=== PATIENT | female | born 2000 | race Caucasian/White ===

== ENCOUNTER 2019-02-07 18:42 | Emergency (ER) | payer SELFPAY ==
[2019-02-07 19:04] LABS: Bacteria/HPF None Seen HPF (None Seen); Bilirubin Negative (Negative); Blood, Urine Negative (Negative); Clarity Clear (Clear); Glucose, Urine (Dipstick) Normal (Negative); Leukocyte 25 Leu/uL (Negative); Nitrite Negative (Negative); Protein, Urine (Dipstick) Negative (Neg-Trace); RBC/HPF 0-3 HPF (0-3); Squamous Epithelial 0-3 HPF (0-3); Urobilinogen Normal mg/dL (Less than 2); WBC/HPF 0-3 HPF (0-3)
[2019-02-07 19:10] LABS: #Basophils 0.1 thou/uL (0.0-0.2); #Eosinphils 0.1 thou/uL (0.0-0.7); #Lymphocytes 2.8 thou/uL (1.20-3.40); #Monocytes 0.8 thou/uL (0.11-0.59); %Basophils 0.4 % (0.0-1.0); %Lymphocytes 23.5 % (28.0-48.0); %Monocytes 6.9 % (0.0-4.0); %Neutrophils 68.2 % (31.0-61.0); Hemoglobin 12.8 g/dL (12.0-16.0); Mean Corpuscular HGB CONC 35.1 g/dL (32.0-36.0); Mean Corpuscular Hemoglobin 30.3 pg (25.0-35.0); Mean Corpuscular Volume 86.3 fL (78.0-98.0); Mean Platelet Volume 7.2 fL (7.4-10.4); Platelet Count 388 thou/uL (130-400); RBC Distribution Width 12.4 % (11.5-14.5); Red Blood Cell (RBC) Count 4.23 mill/uL (4.00-5.20); White Blood Cell (WBC) Count 11.7 thou/uL (4.8-10.8)
[2019-02-07 19:41] LABS: ALT (SGPT) 17 U/L (8-55); AST (SGOT) 16 U/L (5-34); Alkaline Phosphatase 64 U/L (40-100); Anion Gap 11 mmol/L (10-20); BUN (Urea Nitrogen) 6 mg/dL (7.0-18.7); Bilirubin, Total 0.2 mg/dL (0.2-1.2); Calc. Creatinine Clearance 0 mL/min (70-130); Calcium 9.5 mg/dL (7.8-10.44); Carbon Dioxide 22 mmol/L (22-29); Chloride 105 mmol/L (98-107); Estimated GFR-MDRD Greater than 90; Globulin 3.2 g/dL (2.4-3.5); Glucose 85 mg/dL (70-105); Potassium 3.6 mmol/L (3.5-5.1); Protein, Total 7.2 g/dL (6.0-8.3); Sodium 134 mmol/L (136-145)
== END 2019-02-07 20:35 | disposition home or self-care (01) ==
LOC: ERS 18:42
DX: O99.89 Other specified diseases and conditions complicating pregnancy, childbirth and the puerperium (principal); R10.30 Lower abdominal pain, unspecified; Z3A.09 9 weeks gestation of pregnancy
CPT/HCPCS: 36415; 80053; 81003; 81015; 84702; 85025; 99284

== ENCOUNTER 2019-07-05 16:11 | Day surgery (SDC) | payer OTHER ==
[2019-07-05 16:46] VITALS: BMI 27.4
[2019-07-05 16:51] VITALS: BP 127/72; TEMP 99.5
[2019-07-05] MEDS ORDERED: hydrALAZINE 20 MG/ML VIAL SLOW IVP PRN (17:04)
--- NOTE | 2019-07-05 17:07 | PDOC.LDHP ---
Labor and Delivery H&P Chief complaint: other (spotting when wiping) HPI: 18 yo G1 at 30 weeks, sees Dr Vargas, here for spotting after wiping. No LOF, no VB, no clots, no CTX. Slight LLQ pain with standing and walking. No fevers. No recent trauma, no recent sex Review of Systems: completed and pertinents are as per HPI Current gestational age (weeks): 30 Dating criteria: last menstrual period Grav: 1 Current complications: none Abnormal US findings: No Current medications: pre-porfirio vitamins Previous surgical history: none Allergies/Adverse Reactions: Allergies Allergy/AdvReac Type Severity Reaction Status Date / Time No Known Allergies Allergy Unverified 07/05/19 16:42 Social history: none - Physical Exam Vital signs reviewed and normal: yes (127/72 Temp of 99.5) General: NAD Heart: RRR Abdomen: gravid FHT: category 1 (reactive NST) - Assessment Spotting at 30 weeks, no recent coitus. No trauma. No raisa VB. - Plan Plan: observation in L&D, other (I have ordered a TVUS for CX length and cath UA. Clinically stable. Suspect discomforts of at this time.)
[2019-07-05 17:23] LABS: Bacteria/HPF None Seen HPF (None Seen); Bilirubin Negative (Negative); Blood, Urine Negative (Negative); Clarity Turbid (Clear); Glucose, Urine (Dipstick) Normal (Negative); Leukocyte Negative Leu/uL (Negative); Nitrite Negative (Negative); Protein, Urine (Dipstick) Negative (Neg-Trace); RBC/HPF 0-3 HPF (0-3); Renal Epithelial 0-3 HPF (None Seen); Squamous Epithelial 0-3 HPF (0-3); Urobilinogen Normal mg/dL (Less than 2); WBC/HPF 0-3 HPF (0-3)
[2019-07-05 17:25] LABS: Urine Culture Reflex No No
--- NOTE | 2019-07-05 17:39 | PDOC.EVN ---
Event Note - Event Note Event Note: CX length sono OK at 2.6cm...no gross VB notd. OK for DC home but I will give 1 liter LR to make her feel better
--- NOTE | 2019-07-05 17:40 | PDOC.EVN ---
Event Note - Event Note Event Note: MADALYN ok
[2019-07-05] MEDS ORDERED: Lactated Ringer's 1,000 ML IV SCH (17:45)
--- NOTE | 2019-07-05 17:54 | ULT ---
LIMITED OB/PELVIC ULTRASOUND: 07/05/19 COMPARISON: None. HISTORY: Evaluate cervical length in a female. TECHNIQUE: Multiplanar gibbons scale and color Doppler images were obtained in a transabdominal and transvaginal pe lvic ultrasound. There is a single live intrauterine with heart rate of 153 beats per minute. The cervix is 2.8 cm in length with a small amount of fluid within the cervical canal. IMPRESSION: Slight shortening of the cervix as above. POS: EAA
== END 2019-07-05 19:00 | disposition home or self-care (01) ==
LOC: L&D/OP 16:11
PROVIDERS: ATTEND Student in an Organized Health Care Education/Training Program
DX: O26.853 Spotting complicating pregnancy, third trimester (principal); O26.873 Cervical shortening, third trimester; Z3A.30 30 weeks gestation of pregnancy
CPT/HCPCS: 51701; 76856; 81001; 96360; 99282

== ENCOUNTER 2019-08-13 15:13 | Day surgery (SDC) | payer OTHER ==
[2019-08-13 16:10] VITALS: BMI 30.2
[2019-08-13] MEDS ORDERED: hydrALAZINE 20 MG/ML VIAL SLOW IVP PRN (16:24)
[2019-08-13 17:07] LABS: Bacteria/HPF 4+ HPF (None Seen); Bilirubin Negative (Negative); Blood, Urine Trace (Negative); Clarity Turbid (Clear); Glucose, Urine (Dipstick) Normal (Negative); Leukocyte 500 Leu/uL (Negative); Nitrite Negative (Negative); Protein, Urine (Dipstick) 20 mg/dL (Neg-Trace); Urobilinogen Normal mg/dL (Less than 2); WBC/HPF Greater than 50 HPF (0-3)
[2019-08-13 18:13] LABS: Bacteria/HPF 3+ HPF (None Seen); Bilirubin Negative (Negative); Blood, Urine Negative (Negative); Clarity Clear (Clear); Glucose, Urine (Dipstick) Normal (Negative); Leukocyte 75 Leu/uL (Negative); Nitrite Negative (Negative); Protein, Urine (Dipstick) Negative (Neg-Trace); RBC/HPF 0-3 HPF (0-3); Squamous Epithelial 0-3 HPF (0-3); Urobilinogen Normal mg/dL (Less than 2)
--- NOTE | 2019-08-13 18:29 | PRG ---
DATE OF SERVICE: PRIMARY OB: Dr. Delia Vargas. CHIEF COMPLAINT: Pelvic pain. HISTORY OF PRESENT ILLNESS: Patient is a 18-year-old G1, P0 female with an intrauterine at 35 weeks and 5 days, presenting to Labor and Delivery for pelvic pain which she began feeling last night when she was getting up to go to the bathroom. She reports that the pain was sharp and was present as she was trying to get out and back into bed and just has not gotten better. She reports it gets worse with activity and movement, such as getting out of bed, rolling over in bed, walking. She also reports that she does feel her abdomen gets hard at times. She denies vaginal bleeding or leakage of fluid. She reports earlier in the day today she felt like she wanted to pass out, had some dizziness, but was not somewhat so that she could not drive herself here to the hospital at the recommendation of her mother. Again upon pressing her about the symptoms, she was feeling she reports she felt a little bit dizzy, but not so much to impede normal activities. Patient denies fever, cough, headache, chest pain, shortness of breath, nausea, vomiting , diarrhea, constipation, hip problems, knee problems, muscle weakness, vaginal bleeding, leakage of fluid, urinary urgency or frequency. PAST MEDICAL HISTORY: A1 gestational diabetes with this . PAST SURGICAL HISTORY: Negative. ALLERGIES: NO KNOWN DRUG ALLERGIES. MEDICATIONS: Iron pills and vitamins. SOCIAL HISTORY: Denies drug, alcohol, or tobacco use. OB LABS: Blood type is B positive. Antibody screen is negative. Hepatitis B surface antigen is negative. She was positive for chlamydia in February. Repeat exam was negative after treatment. HIV is nonreactive. She is rubella immune. Diabetic screen was 160. In May of this year, she was positive for gonorrhea with repeat testing negative and on July 22, she was GBS negative. REVIEW OF SYSTEMS: Per HPI. PHYSICAL EXAMINATION: VITAL SIGNS: Blood pressure 118/82, heart rate of 104, temperature 98.4, and respiratory rate of 18. GENERAL: She appears to be in no acute distress. She is alert, oriented, cooperative, pleasant to interact with. HEAD: Normocephalic and atraumatic. LUNGS: Clear to auscultation bilaterally. HEART: Has regular rate and rhythm. ABDOMEN: Gravid, soft, and nontender. EXTREMITIES: Nontender and nonedematous. CERVICAL EXAM: Closed, thick and high. LABORATORY DATA: heart tracing shows the fetus with a baseline in the 150s with moderate long-term variability, positive 15 x 15 accelerations, no decelerations. Contractions, she does show some irritability, but does not feel them. Urinalysis, initial results showed 500 leukocyte esterase, 4 to 6 red blood cells, greater than 50 white blood cells, 7 to 10 squamous cells. Urine bacteria 4+. ASSESSMENT AND PLAN: Patient is a 18-year-old G1, P0 female with an intrauterine at 35 weeks and 5 days with A1 gestational diabetes. Pelvic pain is most consistent with musculoskeletal pain with . The urinalysis that we collected appears to be contaminated, so interpretation is impossible. I did go back and discussed this with the patient After reviewing the proper steps and giving a good clean-catch specimen,patient has agreed to recollect the specimen. Patient will be then discharged home as she has no evidence of labor or other concerning features at this time. Fetus has a category 1 tracing and reactive NST. Patient has been counseled to follow up with her primary OB as scheduled. She will be contacting Labor and Delivery in the next couple hours for results. Should she have evidence of urinary tract infection, we will prescribe Keflex. Repeat ua with 3+bacteria, no squamous cells, 75 LE. will send keflex 500mg tid x5days and will culture urine. Pt has been notified Job ID: [id number] [facility]
== END 2019-08-13 18:06 | disposition home health service (06) ==
LOC: L&D/OP 15:13 → EEVIPCON 15:13 → L&D/OP 18:06
PROVIDERS: ATTEND Student in an Organized Health Care Education/Training Program
DX: O99.89 Other specified diseases and conditions complicating pregnancy, childbirth and the puerperium (principal); R10.2 Pelvic and perineal pain; O24.410 Gestational diabetes mellitus in pregnancy, diet controlled; Z3A.35 35 weeks gestation of pregnancy; Z79.899 Other long term (current) drug therapy
CPT/HCPCS: 81001; 99284

== ENCOUNTER 2019-08-30 22:56 | Day surgery (SDC) | payer OTHER ==
[2019-08-30 23:31] VITALS: BP 148/90; TEMP 98.6; BMI 30.7
[2019-08-31] MEDS ORDERED: hydrALAZINE 20 MG/ML VIAL SLOW IVP PRN (00:34)
--- NOTE | 2019-08-31 00:34 | PDOC.LDHP ---
Labor and Delivery H&P Chief complaint: contractions HPI: Pt is a 18 yo at 38.2, BETZY 09/12/19, who presents for contractions starting at 1999. She states she has felt abdominal pressure/contractions 3-4 times since they started. They lasted 3 mins each. She denies substantial LOF, vaginal bleeding, ARREDONDO, LE edema, chest pain, vision changes, shortness of breath , and RUQ pain, dysuria, hematuria, increased urinary frequency. She did endorse one episode of small amount of fluid on undergarments. She also endorsed discharge. She was treated for gonorrhea and chlamydia through this . OB Provider: Dr. Vargas Due date: 09/12/19 Current complications: gestational diabetes Past Medical History: denies Current medications: pre-porfirio vitamins, iron Allergies/Adverse Reactions: Allergies Allergy/AdvReac Type Severity Reaction Status Date / Time No Known Allergies Allergy Verified 08/30/19 23:25 Social history: none - Physical Exam Vital signs reviewed and normal: yes Abnormal vital signs: 148/90, pulse 105 General: NAD, resting Heart: RRR Lungs: nonlabored breathing Abdomen: NTTP Extremeties: no edema - Vaginal Exam Effacement: 0% Station: -3 - OB Labs Blood type: B RH: positive Antibody Screen: negative HIV: negative RPR: unknown HEPSAg: negative GBS: negative Rubella: immune Additional Labs: Pap normal on 03/13/19 - Plan Plan: observation in L&D -: Pt is a 18 yo at 38.2 wks who presents for contractions: # IUP, Term # Contractions Initial check was closed/thick/high. Will recheck in 4 hours # Elevated BP's Denies hx of elevated BP's. She does not have pre-e symptoms. Will continue to monitor but pressures are WNL at this time. She did state she was nervous on admission. - will draw CBC, CMP - monitor for 4 hours # A1GDM - monitor; fasting run around 95 and 2 hr pp are < 120 # GBS Negative Dispo: monitor on L&D for progression of labor
--- NOTE | 2019-08-31 01:30 | PDOC.BPN ---
- Brief Progress Note OBGYN Attending At bedside with the patient now Please see full H&P from Dr Drew 18 yo G1 at 38 weeks with possible CTX, cervix closed Initial BPs were 140s/90s. We will check PIH labs and check BPs over 4 hrs Plan D/W patient. Patient was nervous on arrival, now better.
[2019-08-31 01:39] LABS: #Basophils 0.1 thou/uL (0.0-0.2); #Eosinphils 0.1 thou/uL (0.0-0.7); #Lymphocytes 1.4 thou/uL (1.20-3.40); #Monocytes 0.4 thou/uL (0.11-0.59); %Basophils 0.6 % (0.0-1.0); %Eosinophils 1.3 % (0.0-10.0); %Lymphocytes 15.5 % (28.0-48.0); %Monocytes 4.9 % (0.0-4.0); %Neutrophils 77.7 % (31.0-61.0); Hemoglobin 12.3 g/dL (12.0-16.0); Mean Corpuscular Hemoglobin 30.5 pg (25.0-35.0); Mean Corpuscular Volume 87.2 fL (78.0-98.0); Mean Platelet Volume 8.3 fL (7.4-10.4); Platelet Count 243 thou/uL (130-400); RBC Distribution Width 12.6 % (11.5-14.5); Red Blood Cell (RBC) Count 4.05 mill/uL (4.00-5.20)
[2019-08-31 02:01] LABS: ALT (SGPT) 17 U/L (8-55); AST (SGOT) 17 U/L (5-34); Albumin 3.5 g/dL (3.5-5.0); Alkaline Phosphatase 154 U/L (40-100); Anion Gap 15 mmol/L (10-20); BUN (Urea Nitrogen) Less than 4 mg/dL (7.0-18.7); Bilirubin, Total 0.2 mg/dL (0.2-1.2); Calc. Creatinine Clearance 230 mL/min (70-130); Calcium 9.6 mg/dL (7.8-10.44); Carbon Dioxide 18 mmol/L (22-29); Chloride 105 mmol/L (98-107); Estimated GFR-MDRD Greater than 90; Globulin 3.2 g/dL (2.4-3.5); Glucose 84 mg/dL (70-105); Potassium 3.6 mmol/L (3.5-5.1); Protein, Total 6.7 g/dL (6.0-8.3); Sodium 134 mmol/L (136-145)
--- NOTE | 2019-08-31 02:50 | PDOC.BPN ---
- Brief Progress Note BP checks: normal Labs normal
--- NOTE | 2019-08-31 02:53 | PDOC.BPN ---
- Brief Progress Note OK for DC home if recheck is same. I do not suspect labor at this time. BPs normal, was very nervous when first arrived so may have been artificial rise. Recheck BP Sunday
[2019-08-31] MEDS ORDERED: Promethazine 25 MG TAB PO SCH (03:40)
[2019-08-31] MEDS ORDERED: Promethazine HCl 25 MG/ML VIAL IM SCH (04:00)
== END 2019-08-31 04:00 | disposition home or self-care (01) ==
LOC: L&D/OP 22:56
PROVIDERS: ATTEND Student in an Organized Health Care Education/Training Program
DX: O47.1 False labor at or after 37 completed weeks of gestation (principal); O24.410 Gestational diabetes mellitus in pregnancy, diet controlled; O16.3 Unspecified maternal hypertension, third trimester; Z3A.38 38 weeks gestation of pregnancy
CPT/HCPCS: 36415; 80053; 85025

== ENCOUNTER 2019-09-08 16:00 | Day surgery (SDC) | payer OTHER ==
[2019-09-08 16:58] VITALS: BMI 30.7
[2019-09-08 17:35] LABS: Amnisure Internal Control QC ACCEPTABLE (ACCEPTABLE); Amnisure Test No Membranes Rupture (No Rupture)
[2019-09-08] MEDS ORDERED: hydrALAZINE 20 MG/ML VIAL SLOW IVP PRN (17:48)
--- NOTE | 2019-09-08 17:49 | PDOC.BPN ---
- Brief Progress Note At Bedside. Please see full H&P. NST reactive
--- NOTE | 2019-09-08 18:16 | HP ---
TIME OF EVALUATION: 1744. CHIEF COMPLAINT: Possible leakage of fluid at 39 weeks and contractions. HISTORY OF PRESENT ILLNESS: This is a patient of Dr. Godinez, who is a 18-year-old G1, P0, with an EDC of September 11 giving her EGA of 39 weeks and 3 days. She states that she had a possible gush of fluid at around 1400 and has had some continual leakage. She has had contractions that she rates about every 5 minutes and are graded at 7/10 in pain scale. She denies fevers and has good movement. She denies any other complications, although she does state that she had a history of gonorrhea and chlamydia in this (RN contributed information). REVIEW OF SYSTEMS: Complete review of systems was checked and is otherwise negative unless specified in the HPI. In specific, there is no COVID symptoms, there is no trauma, and there is no evidence of PIH symptoms (visual changes, right upper quadrant, or midepigastric pain). PAST MEDICAL HISTORY: She has gestational diabetes this and is diet-controlled (A1 diabetes). MEDICATIONS: Iron. PAST SURGICAL HISTORY: None. ALLERGIES: NONE. PHYSICAL EXAMINATION: VITAL SIGNS: Her blood pressure is 129/81, pulse is in the 80s, temperature is afebrile, and respirations are 16 and unlabored. GENERAL: She is in no acute distress, but is having some contraction discomfort. ABDOMEN: Grossly gravid and size compatible with dates. PELVIC: Currently pending as we were getting ready to do the sterile speculum evaluation. LABORATORY DATA: Reveals an AmniSure that is negative. On monitors, the heart tones are in the 130s to 140s with moderate variability and accelerations (reactive nonstress test). Tocodynamometer shows contractions about every 5 minutes. ASSESSMENT: This is a 18-year-old G1, P0, at full term, who is here for possible ruptured membranes. AmniSure negative. PLAN: 1. Sterile spec exam discussed with the patient and she is getting ready for her sterile spec exam. 2. Threatened labor. 3. If there is no evidence of ruptured membranes, and her cervix is not in the active phase, we will likely discharge home with expectant management. Follow up within 24 to 48 hours. Job ID: [id number]
--- NOTE | 2019-09-10 08:16 | PRG ---
DATE OF SERVICE: 09/08/2019 TIME SEEN: 1806 hours. STERILE SPECULUM EXAM: In brief, I discussed with the patient sterile speculum examination and I did review with her the negative AmniSure. I performed a sterile speculum examination with the assistance of Emely Hankins ([id number]), with Debby in the room. Sterile spec did not find any evidence of pooling or leakage of fluid to the os with Valsalva and cough. The assessment by the sterile spec exam is that she was not ruptured. Sterile spec was removed and then I performed a digital cervical exam. Cervical exam by me was 3 cm dilated, about 80% to 90% effaced, and 0 station. ASSESSMENT AND PLAN: I have discussed with the patient that a negative AmniSure and negative sterile spec effectively rules out rupture of membrane at this time. I did explain to her that it is possible that the patient would go home and enter spontaneous labor and/or have a rupture of membranes upon arrival at home or later on today. I did instruct her that she is to return to Labor and Delivery should that occur. I also instructed her that I recommended her to contact the office tomorrow, so that she could follow up with Dr. Vargas (I believe I wrote Dr. Godinez in my previous note) within 24-48 hours. Job ID: [id number] MTDD
== END 2019-09-08 18:48 | disposition home or self-care (01) ==
LOC: L&D/OP 16:00
PROVIDERS: ATTEND Student in an Organized Health Care Education/Training Program
DX: O47.1 False labor at or after 37 completed weeks of gestation (principal); O24.410 Gestational diabetes mellitus in pregnancy, diet controlled; Z3A.39 39 weeks gestation of pregnancy
CPT/HCPCS: 84112; 99283

== ENCOUNTER 2019-09-09 16:37 | Day surgery (SDC) | payer OTHER ==
[2019-09-09 17:07] VITALS: BP 117/74; TEMP 99.3; BMI 30.7
--- NOTE | 2019-09-09 19:28 | PRG ---
DATE OF SERVICE: 09/09/2019 PRIMARY OB: Delia Vargas MD CHIEF COMPLAINT: Abdominal pain. HISTORY OF PRESENT ILLNESS: The patient is a 18-year-old G1, P0 female with an intrauterine at 39 weeks and 4 days, presenting to Labor and Delivery with complaints of abdominal pains. The patient is re-presenting from yesterday evening where she was 3, 90, and -1 station. She reports that her contractions become more frequent and more intense. She reports some bloody show, but denies any leakage of fluid. She denies fever, headache, cough, chest pain, shortness of breath, nausea, vomiting, diarrhea, constipation, hip problems, knee problems, or muscle weakness. She denies urinary urgency or frequency. PAST MEDICAL HISTORY: A1 gestational diabetes. PAST SURGICAL HISTORY: Negative. ALLERGIES: NO KNOWN DRUG ALLERGIES. MEDICATIONS: vitamins and iron. SOCIAL HISTORY: Denies drug, alcohol, or tobacco use. OB LABS: Blood type is B positive. Antibody screen is negative. Hepatitis B surface antigen is negative. HIV is nonreactive. Chlamydia was positive on initial visit with a negative [id number]. She is rubella immune. Gonorrhea was positive in her third trimester with a negative [id number]. She is GBS negative. VDRL is nonreactive in the third trimester. REVIEW OF SYSTEMS: Per HPI. PHYSICAL EXAMINATION: VITAL SIGNS: Blood pressure is 117/74, heart rate of 112, respiratory rate of 18, temperature 99.3. GENERAL: She appears to be in no acute distress. She is alert, oriented, cooperative, and pleasant to interact with. HEAD: Normocephalic, atraumatic. LUNGS: Clear to auscultation bilaterally. HEART: Has a regular rate and rhythm. ABDOMEN: Gravid, soft, nontender. EXTREMITIES: Nontender, nonedematous. CERVICAL: Per nursing staff is 4, 90, and -2 station. heart tracing shows the fetus with a baseline in the 140s with moderate long-term variability, positive 15 x 15 accelerations. Contractions are about every 10 minutes with occasional 5-minute contraction. ASSESSMENT AND PLAN: The patient is a 18-year-old primiparous, here for evaluation of labor. 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 We will be evaluating her a couple of hours after her initial visit for signs of active labor. The patient has declined any pain medication at this time. Fetus has a category 1 tracing and reactive NST. We will be making disposition at around 7:30, 2 hours from the time of her initial visit. Pt has no change after 2hrs and was discharged home. fetus with a cat 1 tracing. Term labor precautions given. Pt to f/u with primary ob as scheduled. Job ID: [id number] [facility]TD[facility]
== END 2019-09-09 19:40 | disposition home or self-care (01) ==
LOC: L&D/OP 16:37
PROVIDERS: ATTEND Student in an Organized Health Care Education/Training Program
DX: O99.89 Other specified diseases and conditions complicating pregnancy, childbirth and the puerperium (principal); R10.9 Unspecified abdominal pain; O24.410 Gestational diabetes mellitus in pregnancy, diet controlled; Z3A.39 39 weeks gestation of pregnancy

== ENCOUNTER 2019-09-10 12:03 | Inpatient (IN) | payer OTHER ==
[2019-09-10] MEDS ORDERED: Acetaminophen 500 MG TAB PO PRN (12:37)
[2019-09-10] MEDS ORDERED: Misoprostol 200 MCG TAB PR PRN (12:37)
[2019-09-10] MEDS ORDERED: NS / Oxytocin 40 units/1000ml 1,000 ML IV PRN (12:37)
[2019-09-10] MEDS ORDERED: Ondansetron PF 4 MG/2 ML Vial IVP PRN ×2 (12:37→15:53)
[2019-09-10] MEDS ORDERED: Diphenoxylate HCl/Atropine Tablet PO PRN (12:37)
[2019-09-10] MEDS ORDERED: Promethazine HCl 25 MG/ML VIAL IM PRN ×2 (12:37→15:53)
[2019-09-10] MEDS ORDERED: Carboprost 250 MCG/ML AMP IM PRN (12:37)
[2019-09-10] MEDS ORDERED: hydrALAZINE 20 MG/ML VIAL SLOW IVP PRN (12:37)
[2019-09-10] MEDS ORDERED: HYDROcodone/Acetaminophen 5/325 mg Tablet PO PRN (12:37)
[2019-09-10] MEDS ORDERED: Methylergonovine 0.2 MG/ML VIAL IM PRN (12:37)
[2019-09-10] MEDS ORDERED: Lidocaine 1% (PF) 30 ML VIAL SC PRN (12:37)
[2019-09-10] MEDS ORDERED: Ibuprofen 800 MG TAB PO PRN (12:37)
[2019-09-10] MEDS ORDERED: Butorphanol Tartrate 1 MG/ML VIAL SLOW IVP PRN (12:37)
--- NOTE | 2019-09-10 12:42 | PDOC.LDHP ---
Labor and Delivery H&P Chief complaint: contractions HPI: 18yo at 39w5d by LMP here with painful contractions. No LOF VB. Current gestational age (weeks): 39 Due date: 09/12/19 Dating criteria: last menstrual period Grav: 1 Para: 0 Current complications: gestational diabetes (diet controlled) Abnormal US findings: No Past Medical History: chlamydia Current medications: pre-porfirio vitamins Previous surgical history: none Allergies/Adverse Reactions: Allergies Allergy/AdvReac Type Severity Reaction Status Date / Time No Known Allergies Allergy Verified 09/09/19 17:04 Social history: none - Physical Exam Vital signs reviewed and normal: yes General: NAD, breathing through contractions Heart: RRR Lungs: CTAB Abdomen: gravid Extremeties: no edema FHT: category 1 - Vaginal Exam cm dilated: 5 Effacement: 90% Station: -2 - OB Labs Blood type: O RH: positive Antibody Screen: negative HIV: negative RPR: negative HEPSAg: negative 1 hour GCT: positive 3 hour GTT: positive for GDM GBS: negative Urine drug screen: negative Rubella: immune - Assessment L&D Assessment: term patient in labor - Plan Plan: admit to L&D, labor augmentation if indicated, informed consent obtained, anesthesia consult for pain management
[2019-09-10] MEDS ORDERED: NS w/ Oxytocin 10 units 500 ML IV SCH (12:45)
[2019-09-10 13:31] LABS: Hemoglobin 12.8 g/dL (12.0-16.0); Mean Corpuscular HGB CONC 33.6 g/dL (32.0-36.0); Mean Corpuscular Hemoglobin 29.6 pg (25.0-35.0); Mean Corpuscular Volume 88.2 fL (78.0-98.0); Mean Platelet Volume 8.6 fL (7.4-10.4); Platelet Count 255 thou/uL (130-400); RBC Distribution Width 12.8 % (11.5-14.5); Red Blood Cell (RBC) Count 4.34 mill/uL (4.00-5.20); White Blood Cell (WBC) Count 8.1 thou/uL (4.8-10.8)
[2019-09-10 13:33] VITALS: BMI 30.7
[2019-09-10 14:10] LABS: Syphilis Antibody Nonreactive (Nonreactive); Syphilis Antibody Index 0.04 S/CO (<1.00 Non-Reactive)
[2019-09-10 14:11] LABS: HBSAg Index 0.13 S/CO (0-0.99); Hep B Surf Ag Non-Reactive S/CO (NonReactive)
[2019-09-10] MEDS ORDERED: Fentanyl 4 mcg/Bup 0.1% Cadd 100 ML ONE ×2 (14:56→22:17)
[2019-09-10] MEDS: Lactated Ringer's 1,000 ML IV SCH ×2 (15:45→16:53)
[2019-09-10] MEDS ORDERED: Acetaminophen 325 MG TAB PO PRN (15:53)
[2019-09-10] MEDS ORDERED: diphenhydrAMINE 50 MG/ML VIAL IVP PRN (15:53)
[2019-09-10] MEDS ORDERED: Lactated Ringer's 500 ML IV PRN (15:53)
[2019-09-10] MEDS ORDERED: EPHEDRINE 25 MG/5 ML SYRINGE SLOW IVP PRN (15:53)
[2019-09-10] MEDS ORDERED: Naloxone HCl 0.4 mg/ml Vial IVP PRN ×2 (15:53)
[2019-09-10] MEDS ORDERED: Communication Order-Pharmacy FS SCH (16:00)
[2019-09-10] MEDS ORDERED: Fentanyl 4 mcg/Bupivacaine 0.1% Cassette 100 ML EPIDURAL SCH (16:00)
[2019-09-10] MEDS ORDERED: NS w/ Oxytocin 10 units 500 ML ONE (16:42)
[2019-09-10] MEDS ORDERED: NS / Oxytocin 40 units/1000ml 1,000 ML ONE (19:34)
[2019-09-10] MEDS ORDERED: Lidocaine 1% (PF) 30 ML VIAL ONE (19:34)
--- NOTE | 2019-09-10 23:40 | PDOC.OPDEL ---
OB Operative/Delivery Note Delivery Dr/Surgeon: Sam Assist: n/a Pre-Delivery Diagnosis: active labor Procedure/Post Delivery Dx: spontaneous vaginal delivery Weeks gestation: 39 Anesthesia: epidural - Findings A Sex: male - 1 min: 8 - 5 min: 9 - Additional Findings/Plan Placenta delivered: spontaneous Repaired Obstetrical Laceration: 1st degree Estimated blood loss: 150cc Post delivery plan: routine recovery
[2019-09-11] MEDS ORDERED: Milk Of Magnesia 30 ML UDCUP PO PRN (02:01)
[2019-09-11] MEDS ORDERED: Ondansetron PF 4 MG/2 ML Vial IVP PRN (02:01)
[2019-09-11] MEDS ORDERED: hydrALAZINE 20 MG/ML VIAL SLOW IVP PRN (02:01)
[2019-09-11] MEDS ORDERED: Benzocaine-Menthol 82.5 ML CAN TOP PRN (02:01)
[2019-09-11] MEDS ORDERED: Lanolin Ointment 7 GM TUBE TOP PRN (02:01)
[2019-09-11] MEDS ORDERED: NS / Oxytocin 40 units/1000ml 1,000 ML IV SCH (02:01)
[2019-09-11] MEDS ORDERED: Preparation H Ointment 28 GM TUBE PR PRN (02:01)
[2019-09-11] MEDS ORDERED: HYDROcodone/Acetaminophen 5/325 mg Tablet PO PRN (02:01)
[2019-09-11] MEDS ORDERED: diphenhydrAMINE 25 MG CAP PO PRN (02:01)
[2019-09-11] MEDS ORDERED: Bisacodyl 10 MG SUPP PR PRN (02:01)
[2019-09-11] MEDS: Ibuprofen 800 MG TAB PO SCH ×3 (05:37→22:00)
[2019-09-11] MEDS: Prenatal Vitamin 1 TAB PO SCH (08:41)
[2019-09-11] MEDS: Docusate Calcium (SURFAK) 240 MG CAP PO SCH ×2 (08:41→22:00)
[2019-09-11] MEDS: Ferrous Sulfate 325 MG TAB PO SCH ×2 (08:42→17:39)
[2019-09-11] MEDS ORDERED: Adacel (T-DAP) 0.5 ML SYRINGE IM ONE (09:00)
--- NOTE | 2019-09-11 09:54 | PDOC.PP ---
Post Progress Note Post Day #: 1 PO intake tolerated: yes Flatus: yes Ambulation: no Vital Signs (12 hours) Temp Pulse Resp BP Pulse Ox 09/11/19 08:16 98.7 F 103 H 20 108/57 L 97 09/11/19 02:20 100 09/11/19 02:01 98.2 F 81 19 113/65 100 Weight Weight 168 lb - Physical Examination General: NAD Respiratory: non-labored breathing Abdominal: no distention, appropriately TTP Fundus firm & at: umb Neurological: no gross focal deficits Psychiatric: normal affect Result Diagrams: 09/10/19 13:22 Additional Labs: Post Labs Blood Type B POSITIVE 09/10/19 14:02 Hep Bs Antigen Non-Reactive S/CO (NonReactive) 09/10/19 13:22 - Assessment/Plan PPD1 s/p TSVD VSSAF Doing well, pain controlled, amos po. ambulate and void Rh pos RImm Cont PP care, home tomorrow
[2019-09-12] MEDS: Ibuprofen 800 MG TAB PO SCH ×3 (04:28→22:09)
[2019-09-12] MEDS: Prenatal Vitamin 1 TAB PO SCH (08:13)
[2019-09-12] MEDS: HYDROcodone/Acetaminophen 5/325 mg Tablet PO PRN ×3 (08:13→22:09)
[2019-09-12] MEDS: Docusate Calcium (SURFAK) 240 MG CAP PO SCH ×2 (08:15→22:09)
[2019-09-12] MEDS: Ferrous Sulfate 325 MG TAB PO SCH ×2 (08:16→18:07)
--- NOTE | 2019-09-12 08:33 | PDOC.PP ---
Post Progress Note Post Day #: 2 Subjective: complains of cramping, sending baby to nursery often, frustrated w FOB PO intake tolerated: yes Flatus: yes Ambulation: yes Vital Signs (12 hours) Temp Pulse Resp BP 09/12/19 04:00 98.5 F 85 18 105/58 L Weight Weight 168 lb - Physical Examination General: NAD Respiratory: non-labored breathing Abdominal: lochia, no distention Skin: no rash Neurological: no gross focal deficits Psychiatric: A&Ox3 (FLAT AFFECT) Result Diagrams: 09/10/19 13:22 Additional Labs: Post Labs Blood Type B POSITIVE 09/10/19 14:02 Hep Bs Antigen Non-Reactive S/CO (NonReactive) 09/10/19 13:22 (1) Vaginal delivery Code(s): O80 - ENCOUNTER FOR FULL-TERM UNCOMPLICATED DELIVERY Status: Acute - Assessment/Plan PPD 2-discussed skin to skin, bonding w baby, and our concern for her lack of interest in crying baby despite her complains of cramping pain. Pain meds given by RN while we were in the room. Case management consult placed. Needs of and responsibilities of care reviewed.
--- NOTE | 2019-09-12 10:24 | OP ---
DATE OF PROCEDURE: 09/10/2019 AROM NOTE The time is roughly 1425 hours. ROOM: [facility]. In brief, I was asked by Dr. Vargas to perform artificial rupture of membranes. Bonnie, the patient's nurse, was at bedside for procedure. After explaining artificial rupture of membranes, we did an uncomplicated AROM with clear fluid noted. Cervical exam is 6/80 percent/0/cephalic presentation. We reviewed the heart tracing and it is category 1 with contractions on tocodynamometer about every 3 minutes or so. Job ID: [id number]
[2019-09-13] MEDS: Ibuprofen 800 MG TAB PO SCH (05:00)
[2019-09-13] MEDS: Ferrous Sulfate 325 MG TAB PO SCH (09:08)
[2019-09-13] MEDS: Docusate Calcium (SURFAK) 240 MG CAP PO SCH (09:08)
[2019-09-13] MEDS: Prenatal Vitamin 1 TAB PO SCH (09:08)
[2019-09-13 10:47] VITALS: BP 106/57; TEMP 98.5
== END 2019-09-13 14:32 | disposition home or self-care (01) | DRG 807 ==
LOC: L&D 12:03 → 3SW 09-11 02:10
PROVIDERS: ADMIT Student in an Organized Health Care Education/Training Program; ATTEND Student in an Organized Health Care Education/Training Program
PROC: 10E0XZZ Delivery of Products of Conception, External Approach (ICD-10-PCS; principal; 2019-09-10)
PROC: 10907ZC Drainage of Amniotic Fluid, Therapeutic from Products of Conception, Via Natural or Artificial Opening (ICD-10-PCS; 2019-09-10)
PROC: 0HQ9XZZ Repair Perineum Skin, External Approach (ICD-10-PCS; 2019-09-10)
DX: O24.420 Gestational diabetes mellitus in childbirth, diet controlled (principal); Z37.0 Single live birth; Z3A.39 39 weeks gestation of pregnancy; O70.0 First degree perineal laceration during delivery
CPT/HCPCS: 36415; 36416; 85027; 86780; 86850; 86900; 86901; 87340; J2001; J2590

== ENCOUNTER 2021-09-07 20:26 | Emergency (ER) | payer OTHER ==
[2021-09-07] MEDS ORDERED: Ondansetron ODT 4 MG TAB ONE (21:49)
[2021-09-07] MEDS ORDERED: Ketorolac Tromethamine 30 MG/ML VIAL ONE (21:49)
== END 2021-09-07 22:53 | disposition home or self-care (01) ==
LOC: ERS 20:26
DX: B34.9 Viral infection, unspecified (principal); Z20.822 Contact with and (suspected) exposure to COVID-19
CPT/HCPCS: 96372; 99284; J1885; Q0162; U0003; U0005

== ENCOUNTER 2022-01-17 12:10 | Emergency (ER) | payer OTHER ==
[2022-01-17 13:18] LABS: Bilirubin Negative (Negative); Blood, Urine Negative (Negative); Glucose, Urine (Dipstick) Negative (Negative); Ketone, Urine Negative (Negative); Leukocyte Small (Negative); Nitrite Negative (Negative); Protein, Urine (Dipstick) Negative (Neg-Trace); Specific Gravity, Urine 1.015 (1.005-1.030); Urobilinogen 0.2 mg/dL (Less than 2)
[2022-01-17 13:19] LABS: Clarity Hazy (Clear)
[2022-01-17 13:32] LABS: Bacteria/HPF None Seen HPF (None Seen); RBC/HPF 0-3 HPF (0-3); WBC/HPF 0-3 HPF (0-3)
[2022-01-17 13:46] LABS: #Eosinphils 0.1 thou/uL (0.0-0.7); #Lymphocytes 1.4 thou/uL (1.20-3.40); #Monocytes 0.5 thou/uL (0.11-0.59); #Neutrophils 4.4 thou/uL (1.40-6.50); %Basophils 0.2 % (0.0-1.0); %Eosinophils 1.2 % (0.0-10.0); %Lymphocytes 22.8 % (21.0-51.0); %Monocytes 7.1 % (0.0-10.0); %Neutrophils 68.7 % (42.0-75.0); Hemoglobin 14.8 g/dL (12.0-16.0); Mean Corpuscular HGB CONC 33.8 g/dL (32.0-36.0); Mean Corpuscular Hemoglobin 30.7 pg (27.0-31.0); Mean Corpuscular Volume 90.8 fl (78.0-98.0); Mean Platelet Volume 7.7 fL (7.4-10.4); Platelet Count 341 10x3/uL (130-400); Red Blood Cell (RBC) Count 4.83 mill/uL (4.20-5.40); White Blood Cell (WBC) Count 6.3 10x3/uL (4.8-10.8)
[2022-01-17 14:01] LABS: BHCG - Serum POSITIVE (NEGATIVE); Pregs Control Background? CLEAR/WHITE (CLR/WHITE); Pregs Control Bar Appear? YES (CONTROL BAR)
[2022-01-17 14:05] LABS: ALT (SGPT) 27 U/L (8-55); AST (SGOT) 21 U/L (5-34); Albumin 4.2 g/dL (3.5-5.0); Alkaline Phosphatase 110 U/L (40-110); Anion Gap 12 mmol/L (10-20); BUN (Urea Nitrogen) 8 mg/dL (7.0-18.7); Bilirubin, Total 0.6 mg/dL (0.2-1.2); Calc. Creatinine Clearance 0 mL/min (70-130); Calcium 9.2 mg/dL (7.8-10.44); Carbon Dioxide 21 mmol/L (22-29); Chloride 105 mmol/L (98-107); Estimated GFR 130; Globulin 3.7 g/dL (2.4-3.5); Glucose 82 mg/dL (70-105); Potassium 3.4 mmol/L (3.5-5.1); Protein, Total 7.9 g/dL (6.0-8.3); Sodium 135 mmol/L (136-145)
== END 2022-01-17 16:33 | disposition home or self-care (01) ==
LOC: ERS 12:10
DX: O99.891 Other specified diseases and conditions complicating pregnancy (principal); R10.9 Unspecified abdominal pain; Z3A.01 Less than 8 weeks gestation of pregnancy
CPT/HCPCS: 36415; 76856; 80053; 81003; 81015; 84702; 84703; 85025

== ENCOUNTER 2022-09-30 13:21 | Day surgery (SDC) | payer OTHER ==
[2022-09-30] MEDS ORDERED: Metoclopramide HCl 10 MG/2 ML VIAL ONE (14:29)
[2022-09-30] MEDS ORDERED: Ketorolac Tromethamine 30 MG/ML VIAL ONE (14:29)
[2022-09-30] MEDS ORDERED: diphenhydrAMINE 50 MG/ML VIAL ONE (14:29)
== END 2022-09-30 17:44 | disposition home or self-care (01) ==
LOC: ERS 13:21 → SDC 16:15
PROVIDERS: ATTEND Anesthesiology
DX: G97.1 Other reaction to spinal and lumbar puncture (principal)
CPT/HCPCS: 62272; J1200; J1885; J2765

== ENCOUNTER 2023-02-18 10:16 | Emergency (ER) | payer OTHER ==
[2023-02-18] MEDS ORDERED: Ketorolac Tromethamine 30 MG (1 mL) VIAL ONE (10:35)
== END 2023-02-18 10:45 | disposition home or self-care (01) ==
LOC: ERS 10:16
DX: M79.661 Pain in right lower leg (principal); M79.662 Pain in left lower leg; W18.40XA Slipping, tripping and stumbling without falling, unspecified, initial encounter; Y93.01 Activity, walking, marching and hiking
CPT/HCPCS: 96372; 99283; J1885

== ENCOUNTER 2023-09-15 20:11 | Emergency (ER) | payer OTHER ==
[2023-09-15 20:39] LABS: #Basophils 0.03 10x3/uL (0.0-0.2); %Basophils 0.4 % (0.0-1.0); %Eosinophils 0.6 % (0.0-10.0); %Lymphocytes 24.1 % (21.0-51.0); %Monocytes 4.6 % (0.0-10.0); %Neutrophils 70.1 % (42.0-75.0); Hematocrit 37.4 % (36.0-47.0); Hemoglobin 12.6 g/dL (12.0-16.0); Mean Corpuscular HGB CONC 33.7 g/dL (32.0-36.0); Mean Corpuscular Hemoglobin 28.4 pg (27.0-31.0); Mean Corpuscular Volume 84.2 fL (78.0-98.0); Mean Platelet Volume 9.6 fL (7.4-10.4); Platelet Count 388 10x3/uL (130-400); RBC Distribution Width 14.2 % (11.5-14.5); Red Blood Cell (RBC) Count 4.44 mill/uL (4.20-5.40)
[2023-09-15 20:53] LABS: ALT (SGPT) 13 U/L (8-55); AST (SGOT) 11 U/L (5-34); Albumin 3.2 g/dL (3.5-5.0); Alkaline Phosphatase 68 U/L (40-110); Anion Gap 15 mmol/L (10-20); BUN (Urea Nitrogen) 6 mg/dL (7.0-18.7); Bilirubin, Total 0.2 mg/dL (0.2-1.2); Calc. Creatinine Clearance 0 mL/min (70-130); Calcium 9.5 mg/dL (7.8-10.44); Carbon Dioxide 18 mmol/L (22-29); Chloride 107 mmol/L (98-107); Estimated GFR 134; Globulin 3.8 g/dL (2.4-3.5); Glucose 127 mg/dL (70-105); Potassium 3.1 mmol/L (3.5-5.1); Sodium 137 mmol/L (136-145)
[2023-09-15 21:26] LABS: Bacteria/HPF None Seen HPF (None Seen); Bilirubin Negative (Negative); Blood, Urine Negative (Negative); CAUTI Indications for Culture Pregnancy; Clarity Turbid (Clear); Glucose, Urine (Dipstick) 70 mg/dL (Negative); Ketone, Urine Negative (Negative); Leukocyte 500 Leu/uL (Negative); Nitrite Negative (Negative); Protein, Urine (Dipstick) Negative (Neg-Trace); RBC/HPF 0-3 HPF (0-3); Specific Gravity, Urine 1.017 (1.002-1.036); Urobilinogen Normal mg/dL (Less than 2); pH, Urine 6.5 (5.0-9.0)
[2023-09-15 21:28] LABS: Urine Culture Reflex Yes Yes
[2023-09-15] MEDS ORDERED: Potassium Chloride 20 MEQ TAB ONE (21:55)
== END 2023-09-15 22:05 | disposition home or self-care (01) ==
LOC: ERS 20:11
DX: O99.891 Other specified diseases and conditions complicating pregnancy (principal); R10.9 Unspecified abdominal pain; O99.281 Endocrine, nutritional and metabolic diseases complicating pregnancy, first trimester; E87.6 Hypokalemia; O24.419 Gestational diabetes mellitus in pregnancy, unspecified control; Z3A.01 Less than 8 weeks gestation of pregnancy
CPT/HCPCS: 36415; 76801; 80053; 81001; 84702; 85025; 86900; 86901; 87086

== ENCOUNTER 2023-12-14 13:47 | Emergency (ER) | payer OTHER, SELFPAY ==
[2023-12-14 14:41] LABS: #Basophils Less than 0.03 10x3/uL (0.0-0.2); %Basophils 0.1 % (0.0-1.0); %Eosinophils 0.6 % (0.0-10.0); %Lymphocytes 10.2 % (21.0-51.0); %Monocytes 4.2 % (0.0-10.0); %Neutrophils 84.5 % (42.0-75.0); Hematocrit 34.6 % (36.0-47.0); Hemoglobin 11.3 g/dL (12.0-16.0); Mean Corpuscular HGB CONC 32.7 g/dL (32.0-36.0); Mean Corpuscular Volume 82.8 fL (78.0-98.0); Mean Platelet Volume 9.5 fL (7.4-10.4); Platelet Count 329 10x3/uL (130-400); RBC Distribution Width 13.6 % (11.5-14.5); Red Blood Cell (RBC) Count 4.18 mill/uL (4.20-5.40)
[2023-12-14 14:53] LABS: Bacteria/HPF 4+ HPF (None Seen); Bilirubin Negative (Negative); Blood, Urine Negative (Negative); CAUTI Indications for Culture Alt mental st,lethar; Clarity Turbid (Clear); Glucose, Urine (Dipstick) Normal (Negative); Ketone, Urine Negative (Negative); Leukocyte 500 Leu/uL (Negative); Nitrite Negative (Negative); Protein, Urine (Dipstick) 10 mg/dL (Neg-Trace); RBC/HPF None Seen HPF (0-3); Specific Gravity, Urine 1.003 (1.002-1.036); Urobilinogen Normal mg/dL (Less than 2); pH, Urine 6.5 (5.0-9.0)
[2023-12-14 14:57] LABS: Urine Culture Reflex No No
[2023-12-14 15:00] LABS: ALT (SGPT) 12 U/L (8-55); AST (SGOT) 16 U/L (5-34); Albumin 2.9 g/dL (3.5-5.0); Alkaline Phosphatase 118 U/L (40-110); Anion Gap 12 mmol/L (10-20); BUN (Urea Nitrogen) Less than 4 mg/dL (7.0-18.7); Bilirubin, Total 0.5 mg/dL (0.2-1.2); Calc. Creatinine Clearance 0 mL/min (70-130); Calcium 7.9 mg/dL (7.8-10.44); Carbon Dioxide 21 mmol/L (22-29); Chloride 103 mmol/L (98-107); Estimated GFR 135; Globulin 3.8 g/dL (2.4-3.5); Glucose 90 mg/dL (70-105); Potassium 3.1 mmol/L (3.5-5.1); Protein, Total 6.7 g/dL (6.0-8.3); Sodium 133 mmol/L (136-145)
[2023-12-14] MEDS ORDERED: Ondansetron PF 4 MG/2 ML Vial ONE (15:27)
[2023-12-14] MEDS ORDERED: cefTRIAXone (ROCEPHIN) 1 GM VIAL ONE (18:03)
[2023-12-14] MEDS ORDERED: Sodium Chloride 0.9% 100 ML ONE (18:03)
== END 2023-12-14 18:40 | disposition home or self-care (01) ==
LOC: ERS 13:47
DX: O23.42 Unspecified infection of urinary tract in pregnancy, second trimester (principal); N39.0 Urinary tract infection, site not specified; O21.2 Late vomiting of pregnancy; O24.419 Gestational diabetes mellitus in pregnancy, unspecified control; Z3A.25 25 weeks gestation of pregnancy; Z55.0 Illiteracy and low-level literacy
CPT/HCPCS: 76815; 80053; 81001; 85025; 86900; 86901; 96361; 96365; 96375; J0696; J2405

== ENCOUNTER 2024-10-09 19:50 | Emergency (ER) | payer OTHER ==
[2024-10-09 20:32] LABS: Glucose, Urine (Dipstick) Negative (Negative); Leukocyte Small (Negative); Protein, Urine (Dipstick) Negative (Neg-Trace); Specific Gravity, Urine 1.010 (1.005-1.030)
[2024-10-09 20:37] LABS: Pregnancy Test - Urine (BHCG) Negative (Negative); Pregu Control Background? CLEAR/WHITE (CLR/WHITE); Pregu Control Bar Appear? YES (CONTROL BAR)
[2024-10-09 21:07] LABS: CAUTI Indications for Culture Acute Hematuria; Other Microscopic Description Less than 2 mL rec'd; RBC/HPF None Seen HPF (0-3); Urine Culture Reflex No No; WBC/HPF None Seen HPF (0-3)
[2024-10-09] MEDS ORDERED: Ketorolac Tromethamine 30 MG (1 mL) VIAL ONE (21:20)
[2024-10-09] MEDS ORDERED: Ondansetron PF 4 MG/2 ML Vial ONE ×2 (21:20→22:55)
[2024-10-09] MEDS ORDERED: cefTRIAXone (ROCEPHIN) 1 GM VIAL ONE (21:21)
[2024-10-09 21:49] LABS: #Basophils 0.05 10x3/uL (0.0-0.2); #Eosinophils 0.19 10x3/uL (0.0-0.7); #Monocytes 0.52 10x3/uL (0.11-0.59); #Neutrophils 3.74 10x3/uL (1.40-6.50); %Basophils 0.7 % (0.0-1.0); %Eosinophils 2.8 % (0.0-10.0); %Lymphocytes 33.9 % (21.0-51.0); %Monocytes 7.6 % (0.0-10.0); %Neutrophils 54.9 % (42.0-75.0); Hematocrit 34.5 % (36.0-47.0); Hemoglobin 10.3 g/dL (12.0-16.0); Mean Corpuscular Hemoglobin 23.8 pg (27.0-31.0); Mean Corpuscular Volume 79.9 fL (78.0-98.0); Platelet Count 494 10x3/uL (130-400); Red Blood Cell (RBC) Count 4.32 mill/uL (4.20-5.40); White Blood Cell (WBC) Count 6.82 10x3/uL (4.8-10.8)
[2024-10-09 22:18] LABS: ALT (SGPT) 18 U/L (Less than 34); AST (SGOT) 25 U/L (11-34); Albumin 3.9 g/dL (3.1-4.5); Alkaline Phosphatase 76 U/L (40-110); Anion Gap 11 mmol/L (10-20); BUN (Urea Nitrogen) 10 mg/dL (7.0-18.7); Bilirubin, Total 0.2 mg/dL (0.3-1.2); Calc. Creatinine Clearance 0 mL/min (70-130); Calcium 8.7 mg/dL (7.8-10.44); Carbon Dioxide 25 mmol/L (22-29); Chloride 112 mmol/L (98-107); Globulin 2.8 g/dL (2.4-3.5); Glucose 92 mg/dL (70-105); Potassium 3.9 mmol/L (3.5-5.1); Sodium 144 mmol/L (136-145)
[2024-10-10 03:43] LABS: Chlamydia by PCR, Vaginal Swab Not Detected (NotDetected); GC by PCR, Vaginal Swab Not Detected (NotDetected)
== END 2024-10-10 00:30 | disposition home or self-care (01) ==
LOC: ERS 19:50
DX: N76.0 Acute vaginitis (principal); B96.89 Other specified bacterial agents as the cause of diseases classified elsewhere
CPT/HCPCS: 74177; 76856; 80053; 81001; 81025; 85025; 87480; 87491; 87510; 87591; 87660; 93976; 96365; 96375; 96376; J0696; J1885; J2405; J3010; Q0162